=== PATIENT | male | born 1965 | race Caucasian/White ===

== ENCOUNTER 2022-08-07 10:17 | Day surgery (SDC) | payer MEDICAID ==
[2022-08-07] MEDS ORDERED: Sodium Chloride 0.9% 1,000 ML IV SCH (10:45)
[2022-08-07] MEDS ORDERED: Midazolam 1 MG/ML 2 ML SDV ONE (11:02)
[2022-08-07] MEDS ORDERED: Propofol 200 MG/20 ML SDV ONE ×2 (11:02→12:02)
[2022-08-07 13:07] VITALS: BP 121/70; PULSE 61
== END 2022-08-07 13:18 | disposition home or self-care (01) ==
LOC: JP.SDS 10:17
PROVIDERS: ATTEND Surgery
DX: K92.2 Gastrointestinal hemorrhage, unspecified (principal); E66.9 Obesity, unspecified; N28.89 Other specified disorders of kidney and ureter; Z68.42 Body mass index [BMI] 45.0-49.9, adult; Z79.899 Other long term (current) drug therapy
CPT/HCPCS: 45378; 88305; J2250; J2704; J7030